=== PATIENT | male | born 1960 | race Caucasian/White ===

== ENCOUNTER 2020-07-02 06:35 | Outpatient (CLI) | payer MEDICARE, OTHER ==
[~2020-07-02] VITALS: Ht 170.2 cm; Wt 108.0 kg
[2020-07-02] VITALS (11 sets, daily range): BP systolic 131–170; BP diastolic 67–86
[2020-07-02] MEDS ORDERED: LIDOCAINE WITH 8.4% SOD BICARB 3 ML DISP.SYRIN. ONE (08:03)
[2020-07-02] MEDS ORDERED: HYDR-2761 PO (08:12)
[2020-07-02] MEDS ORDERED: GABA300C18 PO (08:12)
[2020-07-02] MEDS ORDERED: LEVO75TA5 PO (08:12)
[2020-07-02] MEDS ORDERED: CHLO15MO2 PO (08:12)
[2020-07-02 08:32] LABS: BASO % 1 % (0-3); EOS # 0.3 x10^3/uL (0.0-0.7); EOS % 4 % (0-3); HEMATOCRIT 43.1 % (39.0-53.0); HEMOGLOBIN 14.6 g/dL (13.0-17.5); LYMPH # 1.2 x10^3/uL (1.0-4.8); LYMPH % 17 % (24-48); MEAN CORPUSCULAR HEMOGLOBIN 30 pg (25-35); MEAN CORPUSCULAR HGB CONC 34 g/dL (31-37); MEAN CORPUSCULAR VOLUME 89 fL (79-100); MONO # 0.4 x10^3/uL (0.0-1.1); MONO % 6 % (0-9); NEUT % 72 % (31-73); PLATELET COUNT 230 x10^3/uL (140-400); RED BLOOD COUNT 4.83 x10^6/uL (4.30-5.70); RED CELL DISTRIBUTION WIDTH 15.5 % (11.5-14.5); WHITE BLOOD COUNT 6.8 x10^3/uL (4.0-11.0)
[2020-07-02 08:46] LABS: CALCIUM 8.8 mg/dL (8.5-10.1); CREATININE 1.3 mg/dL (0.7-1.3); GFR 55.9; POTASSIUM 4.1 mmol/L (3.5-5.1); PROTHROMBIN TIME PATIENT 13.3 SEC (11.7-14.0)
[2020-07-02] MEDS ORDERED: MIDAZOLAM HCL/PF 2 MG/2 ML VIAL. ONE (09:02)
[2020-07-02] MEDS ORDERED: fentaNYL PF VIAL 100 MCG/2 ML VIAL ONE (09:02)
[2020-07-02] MEDS ORDERED: FLUMAZENIL 0.5 MG/5 ML VIAL. IV ONE (09:02)
[2020-07-02] MEDS ORDERED: fentaNYL PF VIAL 100 MCG/2 ML VIAL IV ONE (09:15)
[2020-07-02] MEDS ORDERED: MIDAZOLAM HCL/PF 2 MG/2 ML VIAL. IV ONE (09:15)
[2020-07-02] MEDS ORDERED: LIDOCAINE WITH 8.4% SOD BICARB 3 ML DISP.SYRIN. IJ ONE (09:15)
--- NOTE | 2020-07-02 09:52 | PDOC ---
MODERATE SEDATION ASSESSMENT RISKS/ALTERNATIVES Risks/Alternatives Risks and alternatives of this type of sedation and procedure discussed with: RISK/ALTERNATIVES: Patient H & P ON CHART H & P H & P on chart and reviewed for co-morbid conditions and appropriate labs. H&P ON CHART: Yes STATUS PREG STATUS ASSESSED: Yes MEDS/ALLERGIES REVIEWED Meds/Allergies Reviewed Medications and Allergies including time and route of recently administered narcotics and sedatives. MEDS/ALLERGIES REVIEWED: Yes ASA RATING ASA RATING: II AIRWAY ASSESSMENT Airway Assessment Airway patency, oral function limitations, presence of caps, crowns, dentures, partials, and ability to extend neck assessed. AIRWAY ASSESSMENT: Yes MALLAMPATI SCORE MALLAMPATI SCORE: II PRE-SEDATION ASSESSMENT PRE-SEDATION ASSESSMENT: Yes RAZ MOON MD July 02, 2020 09:52
--- NOTE | 2020-07-02 09:53 | PDOC ---
BRIEF OPERATIVE NOTE Pre-Op Diagnosis SCC with left rib mass Post-Op Diagnosis same Procedure Performed CT left 5th rib biopsy Surgeon Jose EBL minimal Anesthesia Type: Conscious Sedation Specimens Obtained 6 x 18g cores Findings left 5th rib biopsy Complications no immediate RAZ MOON MD July 02, 2020 09:53
--- NOTE | 2020-07-02 10:59 | NUR ---
Discharge Note: VENESSA MCCORMACK Discharge instructions and discharge home medications reviewed with Patient and a copy given. All questions have been answered and understanding verbalized. The following instructions and handouts were given: adult moderate sedation and biopsy aftercare Discontinued lines and drains: Peripheral IV intact. Patient discharged to Home or Self Care withFamily Membera Wheelchair
--- NOTE | 2020-07-02 15:09 | RAD ---
Procedure: CT-guided biopsy of a hematocrit anterior rib expansile destructive lesion suspicious for metastasis. Clinical Indication: Adult male with history of multifocal squamous cell carcinoma the lung status po st multiple segmentectomy's, now with recurrent lung and left anterior rib lesions. Sedation: Conscious sedation using a combination of Versed and fentanyl was provided for 14 minutes, including continuous monitoring of the patients heart rate, rhythm, blood pressure, oxygen saturation and level of arousability by a trained independent observer. CT Exposure: One or more of the following individualized dose reduction techniques were utilized for this examination: 1. Automated exposure control 2. Adjustment of the mA and/or kV according to alexey ent size 3. Use of iterative reconstruction technique Contrast: None Sterility: The procedure was performed in its entirety using appropriate elements of sterile techniqu e. Consent: The procedure was explained in its entirety to the patient or the patients designated repres entative by a member of the treatment team, including a discussion of the risks, benefits and commonl y accepted alternatives to the procedure, as well as the expected consequences of not performing the procedure. Discussion of the risks included, but was not limited to, those that are most frequent an d those that are rare but possibly severe or life-threatening, as well as the possibility of unforese en complications. Time Out: Immediately prior to initiation a procedural pause was conducted in the presence of the mem bers of the treatment team to verify correct patient identity, correct procedure, correct side if lance licable, correct patient position, availability of specialized equipment, review of patients allergie s, and assessment of current level of consciousness and arousability. Technique and Findings: Following informed consent, the patient was prepped and draped in usual steri le fashion. Pulmonary CT scan of the area of interest was performed. 1 percent lidocaine was used to achieve local anesthesia. A small dermatotomy was made. Under periodic CT surveillance, a 17-gauge ne edle guide was advanced towards the target lesion in multiple 18-gauge core biopsy specimens were obt ained and preserved in formalin. The needle guide was removed and hemostasis was achieved with manual compression. Complications: No immediate Impression: 1. CT-guided biopsy of a left anterior expansile fifth rib lesion suspicious for metastasis. Electronically signed by: Ren Garcia MD (07/02/2020 3:07 PM) [id number]
--- NOTE | 2020-07-04 02:12 | PATHOLOGY ---
[facility] Accession Number: [id number] . 01 Material submitted: . rib - LEFT RIB LESION. Modifiers: left . 01 Clinical history: . LEFT LUMP MASS CHEST WALL 5 AND 6 RIB LEFT 5,6 RIB LESION, CHEST WALL . 02 Diagnosis: "Left rib lesion BX", needle biopsy: - FIBROUS CONNECTIVE TISSUE WITH INVASIVE SQUAMOUS CELL CARCINOMA, MODERATELY DIFFERENTIATED, FOCALLY KERATINIZING. (SEE COMMENT) (CLW:yecenia; 07/03/2020) S 07/03/2020 1519 Local . 02 Comment: Clinical and radiographic correlation is required. The case is co-reviewed with Dr. Eldridge, who agrees, on 07/03/2020. The case will be discussed with Dr. Spencer and/or his office on 07/06/2020. (CLW:yecenia; 07/03/2020) . 02 Electronically signed: . Heide Yoon MD, Pathologist NPI- [id number] . 01 Gross description: . The specimen is received in formalin, labeled "Alex Mace, left rib lesion" received as multiple soft ogden tissue cores measuring up to 1.8 x less than 0.1cm entirely submitted in A1-A3.([facility]; 07/02/2020) BRE/BRE 07/03/2020 1517 Local . 02 Pathologist provided ICD-10: C49.6 . 02 CPT . 415977 Specimen Comment: A courtesy copy of this report has been sent to [phone], [phone] Specimen Comment: [id number] Specimen Comment: Report sent to DR MOON / DR SPENCER Specimen Comment: A duplicate report has been generated due to demographic updates. Performed at: [address] [facility] [address], [place], [place] [id number] MD Biju Sands MD Phone: [phone] Performed at: [address] [facility] [id number] MD Heide Yoon MD Phone: [phone]
== END 2020-07-02 11:20 | disposition home or self-care (01) ==
LOC: INTRAD 06:35
PROVIDERS: ATTEND Radiology Radiation Oncology
DX: R91.8 Other nonspecific abnormal finding of lung field (principal); C49.6 Malignant neoplasm of connective and soft tissue of trunk, unspecified; K21.9 Gastro-esophageal reflux disease without esophagitis; E03.9 Hypothyroidism, unspecified; Z20.822 Contact with and (suspected) exposure to COVID-19; Z79.899 Other long term (current) drug therapy; Z98.890 Other specified postprocedural states
CPT/HCPCS: 20220; 36415; 77012; 80048; 85025; 85610; 87426; 99152; J2250; J3010; J3490

== ENCOUNTER → 2020-07-08 | Outpatient (CLI) | payer MEDICARE, OTHER ==
[2020-07-02 10:55] VITALS: BP 143/78
[~2020-07-08] MED LIST: CHLO15MO2 PO; GABA300C18 PO; HYDR-2761 PO; LEVO75TA5 PO
[2020-07-08 15:26] LABS: BASO # 0.1 x10^3/uL (0.0-0.2); BASO % 1 % (0-3); EOS # 0.3 x10^3/uL (0.0-0.7); EOS % 3 % (0-3); HEMATOCRIT 45.9 % (39.0-53.0); HEMOGLOBIN 15.6 g/dL (13.0-17.5); LYMPH # 1.3 x10^3/uL (1.0-4.8); LYMPH % 14 % (24-48); MEAN CORPUSCULAR HEMOGLOBIN 30 pg (25-35); MEAN CORPUSCULAR HGB CONC 34 g/dL (31-37); MEAN CORPUSCULAR VOLUME 88 fL (79-100); MONO # 0.5 x10^3/uL (0.0-1.1); MONO % 5 % (0-9); NEUT # 7.2 x10^3/uL (1.8-7.7); NEUT % 77 % (31-73); PLATELET COUNT 251 x10^3/uL (140-400); RED BLOOD COUNT 5.23 x10^6/uL (4.30-5.70); RED CELL DISTRIBUTION WIDTH 15.7 % (11.5-14.5); WHITE BLOOD COUNT 9.3 x10^3/uL (4.0-11.0)
[2020-07-08 15:48] LABS: CALCIUM 9.1 mg/dL (8.5-10.1); CREATININE 1.5 mg/dL (0.7-1.3); GFR 47.4; POTASSIUM 4.1 mmol/L (3.5-5.1)
[2020-07-08 15:53] LABS: ALBUMIN 3.9 g/dL (3.4-5.0); ALBUMIN/GLOBULIN RATIO 0.8 (1.0-1.7); TOTAL BILIRUBIN 0.7 mg/dL (0.2-1.0); TOTAL PROTEIN 8.6 g/dL (6.4-8.2)
== END ==
LOC: ONCLAB 14:41
PROVIDERS: ATTEND Internal Medicine Hematology & Oncology
DX: C34.12 Malignant neoplasm of upper lobe, left bronchus or lung (principal)
CPT/HCPCS: 36415; 80053; 85025

== ENCOUNTER → 2020-07-13 | Outpatient (CLI) | payer MEDICARE, MEDICAID ==
[2020-07-02 10:55] VITALS: BP 143/78
[~2020-07-13] MED LIST changes: +GADOTERATE 7.5 MMOL/15ML VIAL. IVP ONE
--- NOTE | 2020-07-13 14:28 | KCIC ---
EXAM: Brain MRI with and without contrast. HISTORY: Small cell lung cancer. TECHNIQUE: Multiplanar, multisequence magnetic resonance imaging of the brain was performed prior to and following the administration of intravenous contrast. COMPARISON: None. FINDINGS: There is no restricted diffusion to suggest acute or subacute infarction. There is no mass effect or midline shift. There is no hydrocephalus. There is mild cerebral volume loss. There are few foci of signal change the cerebral white matter, likely due to chronic small vessel disease. There i s no suspicious enhancing lesion. The orbits are unremarkable. There are maxillary sinus mucous retention cysts and there is a tiny rig ht maxillary sinus air-fluid level. There is mild mucosal thickening involving the ethmoid, frontal a nd sphenoid sinuses. The mastoid air cells are clear. There is a suspected hypoplastic distal right v ertebral artery. There are normal flow voids within the cerebral vessels. There is no suspicious osse ous lesion. IMPRESSION: 1. No acute intracranial finding or evidence of intracranial mass effect disease. 2. Mild age-appropriate cerebral volume loss and tiny foci of signal change within the cerebral white matter, likely due to chronic small vessel disease. Electronically signed by: Connie Scott MD (07/13/2020 2:26 PM) [id number]
== END ==
LOC: KCIC MRI 12:31
PROVIDERS: ATTEND Internal Medicine Hematology & Oncology
DX: C34.12 Malignant neoplasm of upper lobe, left bronchus or lung (principal); R91.8 Other nonspecific abnormal finding of lung field; C88.4 Extranodal marginal zone B-cell lymphoma of mucosa-associated lymphoid tissue [MALT-lymphoma]; K11.6 Mucocele of salivary gland
CPT/HCPCS: 70553; A9575

== ENCOUNTER → 2020-07-15 | Outpatient (CLI) | payer MEDICARE, MEDICAID ==
[2020-07-02 10:55] VITALS: BP 143/78
[~2020-07-15] MED LIST changes: -GADOTERATE 7.5 MMOL/15ML VIAL. IVP ONE
[2020-07-15 10:32] LABS: BASO # 0.1 x10^3/uL (0.0-0.2); BASO % 1 % (0-3); EOS # 0.2 x10^3/uL (0.0-0.7); EOS % 2 % (0-3); HEMATOCRIT 44.9 % (39.0-53.0); HEMOGLOBIN 15.3 g/dL (13.0-17.5); LYMPH # 0.8 x10^3/uL (1.0-4.8); LYMPH % 12 % (24-48); MEAN CORPUSCULAR HEMOGLOBIN 30 pg (25-35); MEAN CORPUSCULAR HGB CONC 34 g/dL (31-37); MEAN CORPUSCULAR VOLUME 87 fL (79-100); MONO # 0.5 x10^3/uL (0.0-1.1); MONO % 7 % (0-9); NEUT # 5.6 x10^3/uL (1.8-7.7); NEUT % 78 % (31-73); PLATELET COUNT 223 x10^3/uL (140-400); RED BLOOD COUNT 5.17 x10^6/uL (4.30-5.70); RED CELL DISTRIBUTION WIDTH 15.4 % (11.5-14.5); WHITE BLOOD COUNT 7.2 x10^3/uL (4.0-11.0)
[2020-07-15 12:41] LABS: ALBUMIN 3.6 g/dL (3.4-5.0); ALBUMIN/GLOBULIN RATIO 0.7 (1.0-1.7); CALCIUM 9.3 mg/dL (8.5-10.1); CREATININE 1.3 mg/dL (0.7-1.3); GFR 55.9; POTASSIUM 3.8 mmol/L (3.5-5.1); TOTAL BILIRUBIN 0.9 mg/dL (0.2-1.0); TOTAL PROTEIN 8.5 g/dL (6.4-8.2)
== END ==
LOC: ONCLAB 10:00
PROVIDERS: ATTEND Internal Medicine Hematology & Oncology
DX: C34.12 Malignant neoplasm of upper lobe, left bronchus or lung (principal); C79.51 Secondary malignant neoplasm of bone; C88.4 Extranodal marginal zone B-cell lymphoma of mucosa-associated lymphoid tissue [MALT-lymphoma]; R91.8 Other nonspecific abnormal finding of lung field; D48.7 Neoplasm of uncertain behavior of other specified sites
CPT/HCPCS: 36415; 80053; 82378; 85025

== ENCOUNTER → 2020-07-22 | Outpatient (CLI) | payer MEDICARE, MEDICAID ==
[2020-07-02 10:55] VITALS: BP 143/78
[2020-07-22 11:25] LABS: BASO % 0 % (0-3); EOS # 0.4 x10^3/uL (0.0-0.7); EOS % 5 % (0-3); HEMATOCRIT 42.5 % (39.0-53.0); HEMOGLOBIN 14.6 g/dL (13.0-17.5); LYMPH # 0.6 x10^3/uL (1.0-4.8); LYMPH % 7 % (24-48); MEAN CORPUSCULAR HEMOGLOBIN 30 pg (25-35); MEAN CORPUSCULAR HGB CONC 34 g/dL (31-37); MEAN CORPUSCULAR VOLUME 86 fL (79-100); MONO # 0.7 x10^3/uL (0.0-1.1); MONO % 8 % (0-9); NEUT # 6.8 x10^3/uL (1.8-7.7); NEUT % 80 % (31-73); PLATELET COUNT 284 x10^3/uL (140-400); RED BLOOD COUNT 4.93 x10^6/uL (4.30-5.70); RED CELL DISTRIBUTION WIDTH 15.2 % (11.5-14.5); WHITE BLOOD COUNT 8.5 x10^3/uL (4.0-11.0)
[2020-07-22 11:37] LABS: CALCIUM 9.8 mg/dL (8.5-10.1); CREATININE 1.3 mg/dL (0.7-1.3); GFR 55.9; POTASSIUM 3.8 mmol/L (3.5-5.1)
[2020-07-22 11:41] LABS: ALBUMIN 3.1 g/dL (3.4-5.0); ALBUMIN/GLOBULIN RATIO 0.6 (1.0-1.7); TOTAL BILIRUBIN 0.8 mg/dL (0.2-1.0); TOTAL PROTEIN 8.4 g/dL (6.4-8.2)
== END ==
LOC: LAB 11:00
PROVIDERS: ATTEND Internal Medicine Hematology & Oncology
DX: C34.12 Malignant neoplasm of upper lobe, left bronchus or lung (principal)
CPT/HCPCS: 36415; 80053; 82378; 85025

== ENCOUNTER 2020-07-27 08:10 | Outpatient (CLI) | payer MEDICARE, MEDICAID ==
[2020-07-27] VITALS (7 sets, daily range): BP systolic 121–150; BP diastolic 77–84
[~2020-07-27] VITALS: Ht 170.2 cm; Wt 102.7 kg
[2020-07-27] MEDS ORDERED: LIDOCAINE 1%/EPI 1:100,000 20 ML VIAL. ONE (08:54)
[2020-07-27 09:06] LABS: PROTHROMBIN TIME PATIENT 13.5 SEC (11.7-14.0)
[2020-07-27] MEDS ORDERED: ONDA4TAB7 PO (09:19)
[2020-07-27] MEDS ORDERED: MIDAZOLAM HCL/PF 5 MG/5 ML VIAL. ONE (09:40)
[2020-07-27] MEDS ORDERED: fentaNYL PF VIAL 100 MCG/2 ML VIAL ONE (09:41)
[2020-07-27] MEDS ORDERED: ONDANSETRON PF 4 MG/2 ML VIAL. ONE (09:52)
[2020-07-27] MEDS ORDERED: ONDANSETRON PF 4 MG/2 ML VIAL. IVP ONE (10:15)
[2020-07-27] MEDS ORDERED: LIDOCAINE 1%/EPI 1:100,000 20 ML VIAL. INJ ONE (10:15)
[2020-07-27] MEDS ORDERED: MIDAZOLAM HCL/PF 5 MG/5 ML VIAL. IV ONE (10:15)
[2020-07-27] MEDS ORDERED: fentaNYL PF VIAL 100 MCG/2 ML VIAL IV ONE (10:15)
--- NOTE | 2020-07-27 10:52 | RAD ---
PROCEDURE: Fluoroscopically and ultrasound-guided placement of right internal jugular tunnel central venous catheter with port (Bard PowerPort, Groshong tip ). Clinical Indication: Chemotherapy Access Discussion: The risks and benefits of the procedure were discussed with the patient and/or their sales representative printing. Informed consent was obtained. The patient was brought to the fluoroscopy suite and placed in supine position. A time out procedure was performed. The right neck and chest were prepped and draped using maximum sterile barrier technique including th e use of: Current guideline approved cutaneous antisepsis, a large sterile sheet to establish a steri le field. Additionally the shuttle buggy operator wore a hat, mask, sterile gloves, a sterile gown during the proce dure as well as practiced acceptable hand hygiene prior to placing the port. Ultrasound-guided access: Ultrasound evaluation showed the right jugular vein to be patent and compr essible. 1 % lidocaine with epinephrine was administered to the skin and subcutaneous tissues overlyi ng the right neck and chest. Under direct ultrasound guidance a single wall puncture was made followe d by tract dilation and placement of a sheath. An ultrasound image was saved and sent to PACS. Next, an incision was made in an infraclavicular location and a pocket created. The catheter was tunneled between the pocket and the venotomy site. The catheter was advanced through the peel away sheath, u nder fluoroscopic guidance, such that it's tip was in the mid right atrium. The catheter was connecte d to the port reservoir. The port was accessed and found to flush and aspirate normally. The reservoi r was then placed into the subcutaneous pocket. The wound was closed in layers using 3 Vicryl and 4- 0 Vicryl suture. Dermabond was applied overlying the wound, and venotomy site. The patient tolerated procedure without immediate complication. Sedation: Conscious sedation was performed for 35 minutes. Sedation was carried out while the patie nt was continually monitored by a member of the Radiology nursing staff. Continual cardiopulmonary m onitoring was carried out during the procedure. The patient tolerated the procedure well and there w ere no immediate complications. fluoro time: 0.4 min dose area product 2 Gycm2 Impression: Successful ultrasound and fluoroscopically guided placement of right internal jugular michelle chevy central venous catheter with port Electronically signed by: Abhijit Rockwell MD (07/27/2020 10:50 AM) [id number]
--- NOTE | 2020-07-27 10:53 | RAD ---
PROCEDURE: Fluoroscopically and ultrasound-guided placement of right internal jugular tunnel central venous catheter with port (Bard PowerPort, Groshong tip ). Clinical Indication: Chemotherapy Access Discussion: The risks and benefits of the procedure were discussed with the patient and/or their phlebotomy services representative. Informed consent was obtained. The patient was brought to the fluoroscopy suite and placed in supine position. A time out procedure was performed. The right neck and chest were prepped and draped using maximum sterile barrier technique including th e use of: Current guideline approved cutaneous antisepsis, a large sterile sheet to establish a steri le field. Additionally the cylinder sander operator wore a hat, mask, sterile gloves, a sterile gown during the proce dure as well as practiced acceptable hand hygiene prior to placing the port. Ultrasound-guided access: Ultrasound evaluation showed the right jugular vein to be patent and compr essible. 1 % lidocaine with epinephrine was administered to the skin and subcutaneous tissues overlyi ng the right neck and chest. Under direct ultrasound guidance a single wall puncture was made followe d by tract dilation and placement of a sheath. An ultrasound image was saved and sent to PACS. Next, an incision was made in an infraclavicular location and a pocket created. The catheter was tunneled between the pocket and the venotomy site. The catheter was advanced through the peel away sheath, u nder fluoroscopic guidance, such that it's tip was in the mid right atrium. The catheter was connecte d to the port reservoir. The port was accessed and found to flush and aspirate normally. The reservoi r was then placed into the subcutaneous pocket. The wound was closed in layers using 3 Vicryl and 4- 0 Vicryl suture. Dermabond was applied overlying the wound, and venotomy site. The patient tolerated procedure without immediate complication. Sedation: Conscious sedation was performed for 35 minutes. Sedation was carried out while the patie nt was continually monitored by a member of the Radiology nursing staff. Continual cardiopulmonary m onitoring was carried out during the procedure. The patient tolerated the procedure well and there w ere no immediate complications. fluoro time: 0.4 min dose area product 2 Gycm2 Impression: Successful ultrasound and fluoroscopically guided placement of right internal jugular michelle chevy central venous catheter with port Electronically signed by: Abhijit Rockwell MD (07/27/2020 10:50 AM) [id number]
--- NOTE | 2020-07-27 11:50 | NUR ---
Discharge Note: VENESSA MCCORMACK Discharge instructions and discharge home medications reviewed with Reo Asset Manager and a copy given. All questions have been answered and understanding verbalized. The following instructions and handouts were given: candice cath instructions and adult moderate sedation Discontinued lines and drains: Peripheral IV intact. Patient discharged to Home or Self Care withFamily Membervia Wheelchair. Patient taken to Radiation/oncology on ground floor for mapping.
--- NOTE | 2020-07-30 09:00 | RAD ---
Procedure: Ultrasound and fluoroscopically guided placement of right internal jugular power port.. 07/30/2020 6:39 AM Clinical Indication: Cancer Treatment Sedation: Conscious sedation was administered for 30 minutes. The patient was monitored by a qualified independent observer throughout the time of sedation. Please refer to the medical record for exact doses of medications utilized to achieve moderate sedation. Fluoroscopy time: 1 minutes Dose area product: 2 Gycm2 Consent: The procedure was explained in its entirety to the patient or the patients designated tax compliance representative by a member of the treatment team, including a discussion of the risks, benefits and commonly accepted alternatives to the procedure, as well as the expected consequences of no therapy whatsoever. Discussion of the risks included, but was not limited to, those that are most frequent and those that are rare but possibly severe or life-threatening, as well as the possibility of unforeseen complications. Technique and Findings: All elements of maximal sterile barrier technique including the use of a cap, mask, sterile gown, sterile gloves, large sterile sheet, appropriate hand hygiene, and 2% chlorhexidine for cutaneous antisepsis (or acceptable alternative antiseptic per current guidelines) were followed for this procedure. Following informed consent, and a timeout procedure, the patient was prepped and draped in the usual sterile fashion. Ultrasound interrogation of the right neck revealed patency and compressibility of the right internal jugular vein. A 21-gauge micropuncture was then used to gain access to this vein under ultrasound guidance. A hard copy ultrasound image was recorded. The needle was exchanged over a wire for a sheath. A 1 inch incision was made several centimeters inferior to the venotomy site. A catheter was tunneled from this site dermatotomy site in the neck. Catheter was advanced through peel-away sheath such that its tip was in the proximal right atrium with the patient supine. The catheter was trimmed to length and connected to the port reservoir. The port was found to flush and aspirate normally. The wound was closed in layers using 4-0 Vicryl suture. Sterile dressings were applied. Impression: Successful ultrasound and fluoroscopically guided placement of a right internal jugular PowerPort
== END 2020-07-27 11:50 | disposition home or self-care (01) ==
LOC: INTRAD 08:10
PROVIDERS: ATTEND Internal Medicine Hematology & Oncology
DX: Z45.2 Encounter for adjustment and management of vascular access device (principal); K21.9 Gastro-esophageal reflux disease without esophagitis; E03.9 Hypothyroidism, unspecified; Z79.899 Other long term (current) drug therapy; Z98.890 Other specified postprocedural states
CPT/HCPCS: 36415; 36561; 76937; 77001; 85610; 87426; 99152; 99153; C1788; C1892; J0690; J2250; J2405; J3010; J3490

== ENCOUNTER → 2020-07-29 | Outpatient (CLI) | payer MEDICARE, MEDICAID ==
[2020-07-27 11:35] VITALS: BP 130/82
[~2020-07-29] MED LIST changes: +ONDA4TAB7 PO
[2020-07-29 14:32] LABS: BASO % 0 % (0-3); EOS # 0.2 x10^3/uL (0.0-0.7); EOS % 3 % (0-3); HEMATOCRIT 41.1 % (39.0-53.0); HEMOGLOBIN 14.1 g/dL (13.0-17.5); LYMPH # 0.3 x10^3/uL (1.0-4.8); LYMPH % 5 % (24-48); MEAN CORPUSCULAR HEMOGLOBIN 30 pg (25-35); MEAN CORPUSCULAR HGB CONC 34 g/dL (31-37); MEAN CORPUSCULAR VOLUME 87 fL (79-100); MONO # 0.2 x10^3/uL (0.0-1.1); MONO % 3 % (0-9); NEUT # 6.5 x10^3/uL (1.8-7.7); NEUT % 89 % (31-73); PLATELET COUNT 237 x10^3/uL (140-400); RED BLOOD COUNT 4.76 x10^6/uL (4.30-5.70); RED CELL DISTRIBUTION WIDTH 14.8 % (11.5-14.5); WHITE BLOOD COUNT 7.3 x10^3/uL (4.0-11.0)
[2020-07-29 14:45] LABS: CALCIUM 9.1 mg/dL (8.5-10.1); CREATININE 1.5 mg/dL (0.7-1.3); GFR 47.4; POTASSIUM 3.5 mmol/L (3.5-5.1)
[2020-07-29 14:51] LABS: ALBUMIN 3.1 g/dL (3.4-5.0); ALBUMIN/GLOBULIN RATIO 0.6 (1.0-1.7); TOTAL BILIRUBIN 0.9 mg/dL (0.2-1.0); TOTAL PROTEIN 8.1 g/dL (6.4-8.2)
[2020-07-29 15:42] LABS: % EOS 5 % (0-5); % LYMPHS 3 % (24-48); % MONOS 1 % (0-10); % SEGS 91 % (35-66); PLT ESTIMATE ADEQUATE (ADEQUATE)
== END ==
LOC: ONCLAB 14:15
PROVIDERS: ATTEND Physician Assistant
DX: C34.12 Malignant neoplasm of upper lobe, left bronchus or lung (principal)
CPT/HCPCS: 36415; 80053; 82378; 85007; 85025

== ENCOUNTER → 2020-08-04 | Outpatient (CLI) | payer MEDICARE, MEDICAID ==
[2020-07-27 11:35] VITALS: BP 130/82
[2020-08-04 16:08] LABS: BASO % 1 % (0-3); EOS % 2 % (0-3); HEMOGLOBIN 13.3 g/dL (13.0-17.5); LYMPH # 0.2 x10^3/uL (1.0-4.8); LYMPH % 19 % (24-48); MEAN CORPUSCULAR HEMOGLOBIN 30 pg (25-35); MEAN CORPUSCULAR HGB CONC 35 g/dL (31-37); MEAN CORPUSCULAR VOLUME 86 fL (79-100); MONO # 0.1 x10^3/uL (0.0-1.1); MONO % 4 % (0-9); NEUT % 74 % (31-73); PLATELET COUNT 154 x10^3/uL (140-400); RED BLOOD COUNT 4.43 x10^6/uL (4.30-5.70); RED CELL DISTRIBUTION WIDTH 14.7 % (11.5-14.5)
[2020-08-04 16:13] LABS: WHITE BLOOD COUNT 1.3 x10^3/uL (4.0-11.0)
[2020-08-04 16:17] LABS: ALBUMIN 2.8 g/dL (3.4-5.0); ALBUMIN/GLOBULIN RATIO 0.7 (1.0-1.7); CALCIUM 8.9 mg/dL (8.5-10.1); CREATININE 1.3 mg/dL (0.7-1.3); GFR 55.9; POTASSIUM 3.1 mmol/L (3.5-5.1); TOTAL BILIRUBIN 1.1 mg/dL (0.2-1.0); TOTAL PROTEIN 7.1 g/dL (6.4-8.2)
[2020-08-04 17:12] LABS: % BANDS 6 % (0-9); % EOS 2 % (0-5); % LYMPHS 24 % (24-48); % MONOS 3 % (0-10); % SEGS 65 % (35-66)
[2020-08-04 17:13] LABS: PLT ESTIMATE ADEQUATE (ADEQUATE)
== END ==
LOC: ONCLAB 15:30
PROVIDERS: ATTEND Physician Assistant
DX: C34.12 Malignant neoplasm of upper lobe, left bronchus or lung (principal)
CPT/HCPCS: 36415; 80053; 85007; 85025

== ENCOUNTER → 2020-08-07 | Outpatient (CLI) | payer MEDICARE, MEDICAID ==
[2020-07-27 11:35] VITALS: BP 130/82
[2020-08-07 12:19] LABS: BASO % 0 % (0-3); EOS % 1 % (0-3); HEMOGLOBIN 12.4 g/dL (13.0-17.5); LYMPH # 0.3 x10^3/uL (1.0-4.8); LYMPH % 6 % (24-48); MEAN CORPUSCULAR HEMOGLOBIN 29 pg (25-35); MEAN CORPUSCULAR HGB CONC 35 g/dL (31-37); MEAN CORPUSCULAR VOLUME 85 fL (79-100); MONO # 0.5 x10^3/uL (0.0-1.1); MONO % 11 % (0-9); NEUT % 82 % (31-73); PLATELET COUNT 164 x10^3/uL (140-400); RED BLOOD COUNT 4.22 x10^6/uL (4.30-5.70); RED CELL DISTRIBUTION WIDTH 14.6 % (11.5-14.5); WHITE BLOOD COUNT 4.9 x10^3/uL (4.0-11.0)
[2020-08-07 12:35] LABS: CALCIUM 8.4 mg/dL (8.5-10.1); GFR 75.7
== END ==
LOC: ONCLAB 11:41
PROVIDERS: ATTEND Physician Assistant
DX: D48.7 Neoplasm of uncertain behavior of other specified sites (principal)
CPT/HCPCS: 36415; 80048; 85025

== ENCOUNTER → 2020-08-12 | Outpatient (CLI) | payer MEDICARE, MEDICAID ==
[2020-07-27 11:35] VITALS: BP 130/82
[2020-08-12 09:22] LABS: BASO % 0 % (0-3); EOS # 0.1 x10^3/uL (0.0-0.7); EOS % 2 % (0-3); HEMATOCRIT 36.7 % (39.0-53.0); HEMOGLOBIN 12.4 g/dL (13.0-17.5); LYMPH # 0.5 x10^3/uL (1.0-4.8); LYMPH % 10 % (24-48); MEAN CORPUSCULAR HEMOGLOBIN 29 pg (25-35); MEAN CORPUSCULAR HGB CONC 34 g/dL (31-37); MEAN CORPUSCULAR VOLUME 87 fL (79-100); MONO # 0.3 x10^3/uL (0.0-1.1); MONO % 7 % (0-9); NEUT # 3.7 x10^3/uL (1.8-7.7); NEUT % 80 % (31-73); PLATELET COUNT 173 x10^3/uL (140-400); RED BLOOD COUNT 4.24 x10^6/uL (4.30-5.70); WHITE BLOOD COUNT 4.6 x10^3/uL (4.0-11.0)
[2020-08-12 09:36] LABS: ALBUMIN 2.8 g/dL (3.4-5.0); ALBUMIN/GLOBULIN RATIO 0.7 (1.0-1.7); CALCIUM 8.7 mg/dL (8.5-10.1); GFR 75.7; TOTAL BILIRUBIN 0.6 mg/dL (0.2-1.0); TOTAL PROTEIN 7.1 g/dL (6.4-8.2)
[2020-08-12 09:38] LABS: POTASSIUM 2.9 mmol/L (3.5-5.1)
== END ==
LOC: ONCLAB 08:37
PROVIDERS: ATTEND Internal Medicine Hematology & Oncology
DX: C34.12 Malignant neoplasm of upper lobe, left bronchus or lung (principal)
CPT/HCPCS: 36415; 80053; 85025

== ENCOUNTER → 2020-08-19 | Outpatient (CLI) | payer MEDICARE, MEDICAID ==
[2020-07-27 11:35] VITALS: BP 130/82
[2020-08-19 08:45] LABS: BASO # 0.1 x10^3/uL (0.0-0.2); BASO % 3 % (0-3); EOS # 0.1 x10^3/uL (0.0-0.7); EOS % 2 % (0-3); HEMOGLOBIN 12.4 g/dL (13.0-17.5); LYMPH # 0.5 x10^3/uL (1.0-4.8); LYMPH % 18 % (24-48); MEAN CORPUSCULAR HEMOGLOBIN 29 pg (25-35); MEAN CORPUSCULAR HGB CONC 33 g/dL (31-37); MEAN CORPUSCULAR VOLUME 87 fL (79-100); MONO # 0.1 x10^3/uL (0.0-1.1); MONO % 2 % (0-9); NEUT # 2.2 x10^3/uL (1.8-7.7); NEUT % 76 % (31-73); PLATELET COUNT 258 x10^3/uL (140-400); RED BLOOD COUNT 4.28 x10^6/uL (4.30-5.70); RED CELL DISTRIBUTION WIDTH 15.4 % (11.5-14.5); WHITE BLOOD COUNT 2.9 x10^3/uL (4.0-11.0)
[2020-08-19 09:04] LABS: CALCIUM 9.4 mg/dL (8.5-10.1); CREATININE 0.9 mg/dL (0.7-1.3); GFR 85.5
[2020-08-19 09:10] LABS: ALBUMIN 3.4 g/dL (3.4-5.0); ALBUMIN/GLOBULIN RATIO 0.9 (1.0-1.7); TOTAL BILIRUBIN 0.5 mg/dL (0.2-1.0); TOTAL PROTEIN 7.4 g/dL (6.4-8.2)
== END ==
LOC: ONCLAB 08:25
PROVIDERS: ATTEND Physician Assistant
DX: C34.12 Malignant neoplasm of upper lobe, left bronchus or lung (principal)
CPT/HCPCS: 36415; 80053; 85025

== ENCOUNTER → 2020-08-26 | Outpatient (CLI) | payer MEDICARE, MEDICAID ==
[2020-07-27 11:35] VITALS: BP 130/82
[2020-08-26 08:25] LABS: BASO % 1 % (0-3); EOS % 1 % (0-3); HEMOGLOBIN 11.9 g/dL (13.0-17.5); LYMPH # 0.4 x10^3/uL (1.0-4.8); LYMPH % 29 % (24-48); MEAN CORPUSCULAR HEMOGLOBIN 30 pg (25-35); MEAN CORPUSCULAR HGB CONC 34 g/dL (31-37); MEAN CORPUSCULAR VOLUME 87 fL (79-100); MONO # 0.1 x10^3/uL (0.0-1.1); MONO % 9 % (0-9); NEUT # 0.8 x10^3/uL (1.8-7.7); NEUT % 60 % (31-73); PLATELET COUNT 164 x10^3/uL (140-400); RED BLOOD COUNT 4.02 x10^6/uL (4.30-5.70); RED CELL DISTRIBUTION WIDTH 15.5 % (11.5-14.5)
[2020-08-26 08:33] LABS: CALCIUM 9.6 mg/dL (8.5-10.1); GFR 75.7; POTASSIUM 4.3 mmol/L (3.5-5.1)
[2020-08-26 08:37] LABS: WHITE BLOOD COUNT 1.4 x10^3/uL (4.0-11.0)
[2020-08-26 08:38] LABS: ALBUMIN 3.8 g/dL (3.4-5.0); TOTAL BILIRUBIN 0.9 mg/dL (0.2-1.0); TOTAL PROTEIN 7.6 g/dL (6.4-8.2)
[2020-08-26 10:08] LABS: % BANDS 1 % (0-9); % BASOS 2 % (0-3); % LYMPHS 32 % (24-48); % MONOS 6 % (0-10); % SEGS 59 % (35-66); PLT ESTIMATE ADEQUATE (ADEQUATE)
== END ==
LOC: ONCLAB 08:03
PROVIDERS: ATTEND Internal Medicine Hematology & Oncology
DX: C34.12 Malignant neoplasm of upper lobe, left bronchus or lung (principal)
CPT/HCPCS: 36415; 80053; 85007; 85025

== ENCOUNTER → 2020-08-28 | Outpatient (CLI) | payer MEDICARE, MEDICAID ==
[2020-07-27 11:35] VITALS: BP 130/82
[2020-08-28 10:42] LABS: AMYLASE 34 U/L (25-115); LIPASE 90 U/L (73-393)
== END ==
LOC: ONCLAB 09:55
PROVIDERS: ATTEND Physician Assistant
DX: R11.0 Nausea (principal)
CPT/HCPCS: 36415; 82150; 83690

== ENCOUNTER → 2020-09-02 | Outpatient (CLI) | payer MEDICARE, MEDICAID ==
[2020-07-27 11:35] VITALS: BP 130/82
[2020-09-02 09:04] LABS: BASO % 1 % (0-3); EOS % 0 % (0-3); HEMATOCRIT 34.1 % (39.0-53.0); HEMOGLOBIN 11.3 g/dL (13.0-17.5); LYMPH # 0.5 x10^3/uL (1.0-4.8); LYMPH % 12 % (24-48); MEAN CORPUSCULAR HEMOGLOBIN 30 pg (25-35); MEAN CORPUSCULAR HGB CONC 33 g/dL (31-37); MEAN CORPUSCULAR VOLUME 90 fL (79-100); MONO # 0.5 x10^3/uL (0.0-1.1); MONO % 12 % (0-9); NEUT # 3.3 x10^3/uL (1.8-7.7); NEUT % 75 % (31-73); PLATELET COUNT 136 x10^3/uL (140-400); RED BLOOD COUNT 3.78 x10^6/uL (4.30-5.70); RED CELL DISTRIBUTION WIDTH 19.6 % (11.5-14.5); WHITE BLOOD COUNT 4.3 x10^3/uL (4.0-11.0)
[2020-09-02 09:21] LABS: CREATININE 0.9 mg/dL (0.7-1.3); GFR 85.5; POTASSIUM 3.2 mmol/L (3.5-5.1)
[2020-09-02 09:26] LABS: ALBUMIN 3.2 g/dL (3.4-5.0); ALBUMIN/GLOBULIN RATIO 0.8 (1.0-1.7); TOTAL BILIRUBIN 1.4 mg/dL (0.2-1.0); TOTAL PROTEIN 7.3 g/dL (6.4-8.2)
== END ==
LOC: ONCLAB 08:14
PROVIDERS: ATTEND Physician Assistant
DX: C34.12 Malignant neoplasm of upper lobe, left bronchus or lung (principal)
CPT/HCPCS: 36415; 80053; 85025

== ENCOUNTER → 2020-10-08 | Outpatient (CLI) | payer MEDICARE, MEDICAID ==
[2020-07-27 11:35] VITALS: BP 130/82
[~2020-10-08] MED LIST changes: +HEPARIN PF 500 UNIT/5 ML DISP.SYRIN. IVP ONE; +IOHEXOL 240 MG/ML 50ML VIAL. PO ONE; +IOHEXOL 300 MG/ML 100ML VIAL. IV ONE
--- NOTE | 2020-10-08 12:56 | EKG ---
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
--- NOTE | 2020-10-09 08:51 | RAD ---
EXAM: CT CHEST, ABDOMEN, AND PELVIS WITHOUT CONTRAST INDICATION: Small cell lung cancer COMPARISON: CT chest from 05/22/2020 TECHNIQUE: Helical CT imaging performed of the chest, abdomen and pelvis without the use of intraveno us contrast. Sagittal and coronal reformats were obtained. One or more of the following individualized dose reduction techniques were utilized for this examinat ion: 1. Automated exposure control 2. Adjustment of the mA and/or kV according to patient size 3. Use of iterative reconstruction technique. FINDINGS: CHEST: Thyroid gland and thoracic inlet: Normal Heart and great vessels: Normal in caliber. No significant atherosclerosis or aneurysm seen. Mediastinum and nadege: No abnormal mediastinal or hilar adenopathy is seen. Lungs and pleura: There is a soft tissue density mass measuring 1.6 x 1.7 x 1.8 cm in maximum AP, crane operator cab nial caudal and transverse dimension (previously measuring 2.1 x 2.0 x 2.3 cm in corresponding dimens ions). The right lung is clear. There are streaky linear opacities in the left lung base likely atele ctasis. Chest wall and axillae: Normal Bones: Normal. ABDOMEN AND PELVIS: Liver: Normal without focal lesions Gallbladder/Biliary Tree: Not seen perhaps surgically absent. Pancreas: Normal Spleen: Stable grossly unremarkable Adrenal Glands: Normal, bilaterally symmetric. Normal in size a Kidneys/Ureters/Bladder: Normal bilateral kidneys with symmetric excretion of contrast. Stable renal cysts. Urinary bladder is decompressed Reproductive Organs: Normal Stomach, small bowel, and colon: Stomach is normal. Small bowel loops are grossly unremarkable. Sigmo id diverticulosis. There is anastomosis in the sigmoid colon. No adjacent mass lesions or stranding i s seen. Vasculature: Normal. Mild atheromatous calcification of the aorta is noted. Lymph Nodes: Normal Peritoneum and retroperitoneum: Normal Bones: Unremarkable IMPRESSION: 1. Interval decrease in the size of left lower lobe pulmonary mass. 2. No evidence of metastatic disease noted. Electronically signed by: Dora Polk MD (10/09/2020 8:49 AM) [id number]
== END ==
LOC: CT 11:16
PROVIDERS: ATTEND Physician Assistant
DX: C34.12 Malignant neoplasm of upper lobe, left bronchus or lung (principal); R91.8 Other nonspecific abnormal finding of lung field; K57.30 Diverticulosis of large intestine without perforation or abscess without bleeding; I70.0 Atherosclerosis of aorta; I44.4 Left anterior fascicular block; R94.31 Abnormal electrocardiogram [ECG] [EKG]
CPT/HCPCS: 71260; 74177; 93005; J1642; Q9966; Q9967

== ENCOUNTER → 2020-10-08 | Outpatient (CLI) | payer MEDICARE, MEDICAID ==
[2020-07-27 11:35] VITALS: BP 130/82
[~2020-10-08] MED LIST changes: -HEPARIN PF 500 UNIT/5 ML DISP.SYRIN. IVP ONE; -IOHEXOL 240 MG/ML 50ML VIAL. PO ONE; -IOHEXOL 300 MG/ML 100ML VIAL. IV ONE
[2020-10-08 10:28] LABS: BASO % 1 % (0-3); EOS % 1 % (0-3); HEMATOCRIT 25.7 % (39.0-53.0); HEMOGLOBIN 8.7 g/dL (13.0-17.5); LYMPH # 0.3 x10^3/uL (1.0-4.8); LYMPH % 11 % (24-48); MEAN CORPUSCULAR HEMOGLOBIN 33 pg (25-35); MEAN CORPUSCULAR HGB CONC 34 g/dL (31-37); MEAN CORPUSCULAR VOLUME 96 fL (79-100); MONO # 0.1 x10^3/uL (0.0-1.1); MONO % 5 % (0-9); NEUT # 2.1 x10^3/uL (1.8-7.7); NEUT % 83 % (31-73); PLATELET COUNT 158 x10^3/uL (140-400); RED BLOOD COUNT 2.68 x10^6/uL (4.30-5.70); RED CELL DISTRIBUTION WIDTH 23.6 % (11.5-14.5); WHITE BLOOD COUNT 2.6 x10^3/uL (4.0-11.0)
[2020-10-08 10:29] LABS: GFR 75.7; POTASSIUM 3.5 mmol/L (3.5-5.1)
[2020-10-08 10:42] LABS: FREE T4 1.24 ng/dL (0.76-1.46); THYROID STIM HORMONE (TSH) 1.811 uIU/mL (0.358-3.74)
[2020-10-08 12:36] LABS: % BASOS 1 % (0-3); % EOS 1 % (0-5); % LYMPHS 15 % (24-48); % SEGS 83 % (35-66)
[2020-10-08 12:39] LABS: PLT ESTIMATE ADEQUATE (ADEQUATE)
[2020-10-08 12:40] LABS: ANISOCYTOSIS MOD
== END ==
LOC: SPEC 09:30
PROVIDERS: ATTEND Physician Assistant
DX: R91.8 Other nonspecific abnormal finding of lung field (principal); E03.2 Hypothyroidism due to medicaments and other exogenous substances
CPT/HCPCS: 36415; 80048; 82024; 82533; 84439; 84443; 85007; 85025

== ENCOUNTER → 2020-10-09 | Outpatient (CLI) | payer MEDICARE, MEDICAID ==
[2020-07-27 11:35] VITALS: BP 130/82
[2020-10-09 11:35] LABS: CALCIUM 7.9 mg/dL (8.5-10.1); CREATININE 0.9 mg/dL (0.7-1.3); GFR 85.5; POTASSIUM 3.3 mmol/L (3.5-5.1)
[2020-10-09 11:42] LABS: ALBUMIN 3.7 g/dL (3.4-5.0); ALBUMIN/GLOBULIN RATIO 1.1 (1.0-1.7); TOTAL BILIRUBIN 0.9 mg/dL (0.2-1.0)
[2020-10-09 11:46] LABS: BASO % 0 % (0-3); EOS % 1 % (0-3); HEMATOCRIT 24.2 % (39.0-53.0); HEMOGLOBIN 8.5 g/dL (13.0-17.5); LYMPH # 0.3 x10^3/uL (1.0-4.8); LYMPH % 9 % (24-48); MEAN CORPUSCULAR HEMOGLOBIN 34 pg (25-35); MEAN CORPUSCULAR HGB CONC 35 g/dL (31-37); MEAN CORPUSCULAR VOLUME 96 fL (79-100); MONO # 0.2 x10^3/uL (0.0-1.1); MONO % 5 % (0-9); NEUT # 2.8 x10^3/uL (1.8-7.7); NEUT % 84 % (31-73); PLATELET COUNT 166 x10^3/uL (140-400); RED BLOOD COUNT 2.53 x10^6/uL (4.30-5.70); RED CELL DISTRIBUTION WIDTH 24.2 % (11.5-14.5); WHITE BLOOD COUNT 3.3 x10^3/uL (4.0-11.0)
== END ==
LOC: ONCLAB 11:03
PROVIDERS: ATTEND Physician Assistant
DX: C34.12 Malignant neoplasm of upper lobe, left bronchus or lung (principal)
CPT/HCPCS: 36415; 80053; 83615; 85025

== ENCOUNTER → 2020-10-13 | Outpatient (CLI) | payer MEDICARE, MEDICAID ==
[2020-07-27 11:35] VITALS: BP 130/82
[2020-10-13 11:06] LABS: BASO % 0 % (0-3); EOS % 2 % (0-3); HEMATOCRIT 27.3 % (39.0-53.0); HEMOGLOBIN 9.2 g/dL (13.0-17.5); LYMPH # 0.6 x10^3/uL (1.0-4.8); LYMPH % 21 % (24-48); MEAN CORPUSCULAR HEMOGLOBIN 34 pg (25-35); MEAN CORPUSCULAR HGB CONC 34 g/dL (31-37); MEAN CORPUSCULAR VOLUME 100 fL (79-100); MONO # 0.3 x10^3/uL (0.0-1.1); MONO % 10 % (0-9); NEUT # 1.7 x10^3/uL (1.8-7.7); NEUT % 66 % (31-73); PLATELET COUNT 121 x10^3/uL (140-400); RED BLOOD COUNT 2.74 x10^6/uL (4.30-5.70); RED CELL DISTRIBUTION WIDTH 25.5 % (11.5-14.5); WHITE BLOOD COUNT 2.6 x10^3/uL (4.0-11.0)
[2020-10-13 11:16] LABS: CALCIUM 9.1 mg/dL (8.5-10.1); GFR 75.7; POTASSIUM 4.2 mmol/L (3.5-5.1)
[2020-10-13 11:22] LABS: ALBUMIN 3.5 g/dL (3.4-5.0); TOTAL BILIRUBIN 0.5 mg/dL (0.2-1.0)
== END ==
LOC: ONCLAB 10:33
PROVIDERS: ATTEND Physician Assistant
DX: C34.12 Malignant neoplasm of upper lobe, left bronchus or lung (principal)
CPT/HCPCS: 36415; 80053; 83615; 85025

== ENCOUNTER → 2021-01-05 | Outpatient (CLI) | payer MEDICARE, MEDICAID ==
[2020-07-27 11:35] VITALS: BP 130/82
[2021-01-05 08:35] LABS: BASO % 1 % (0-3); EOS # 0.4 x10^3/uL (0.0-0.7); EOS % 6 % (0-3); HEMATOCRIT 41.6 % (39.0-53.0); LYMPH # 0.9 x10^3/uL (1.0-4.8); LYMPH % 16 % (24-48); MEAN CORPUSCULAR HEMOGLOBIN 31 pg (25-35); MEAN CORPUSCULAR HGB CONC 34 g/dL (31-37); MEAN CORPUSCULAR VOLUME 93 fL (79-100); MONO # 0.3 x10^3/uL (0.0-1.1); MONO % 6 % (0-9); NEUT % 72 % (31-73); PLATELET COUNT 178 x10^3/uL (140-400); RED CELL DISTRIBUTION WIDTH 14.3 % (11.5-14.5); WHITE BLOOD COUNT 5.6 x10^3/uL (4.0-11.0)
[2021-01-05 08:36] LABS: CALCIUM 8.8 mg/dL (8.5-10.1); CREATININE 0.8 mg/dL (0.7-1.3); POTASSIUM 3.9 mmol/L (3.5-5.1)
== END ==
LOC: ONCLAB 08:02
PROVIDERS: ATTEND Physician Assistant
DX: C34.12 Malignant neoplasm of upper lobe, left bronchus or lung (principal)
CPT/HCPCS: 36415; 80048; 85025

== ENCOUNTER → 2021-01-11 | Outpatient (CLI) | payer MEDICARE, MEDICAID ==
[2020-07-27 11:35] VITALS: BP 130/82
[~2021-01-11] MED LIST changes: +HEPARIN PF 500 UNIT/5 ML DISP.SYRIN. IVP ONE; +IOHEXOL 240 MG/ML 50ML VIAL. PO ONE; +IOHEXOL 300 MG/ML 100ML VIAL. IV ONE
--- NOTE | 2021-01-11 17:02 | RAD ---
EXAM: CT OF THE CHEST, ABDOMEN AND PELVIS WITH CONTRAST. HISTORY: Non-small cell lung cancer. TECHNIQUE: Computed tomography of the chest, abdomen and pelvis was performed after the intravenous a dministration of iodinated contrast. One or more of the following individualized dose reduction techn iques were utilized for this examination: 1. Automated exposure control. 2. Adjustment of the mA and/or kV according to patient size. 3. Use of iterative reconstruction technique. COMPARISON: 10/08/2020. FINDINGS: Bone windows reveal no suspicious lesions. A right-sided port catheter has its tip in the s uperior cavoatrial junction. There are no pathologically enlarged mediastinal or axillary lymph nodes. There are small pericardial and left pleural effusions. The heart is not enlarged. Consolidation about lingular lung suture line has increased. The region now spans 4.3 x 2.6 cm. This abuts the left lateral and medial pleura. A 3 mm nodule medially in the right upper lobe on image 18 is not clearly changed. Additional small n odules on images 28 and 16 also appear stable. The gallbladder is surgically absent. Bilateral benign renal cysts measure up to 2.5 cm on the right. The spleen, liver, adrenal glands and pancreas are unremarkable. There are no pathologically enlarged lymph nodes. The appendix is not inflamed. There is an anastomot ic suture line along the sigmoid colon. There is no small bowel obstruction. IMPRESSION: 1. Increased consolidation or soft tissue density about the lingular lung suture line. This may refle ct postradiation change rather than recurrence. Ongoing follow-up is recommended. 2. New small left and pericardial effusions. 3. Tiny bilateral pulmonary nodules are unchanged. 4. No clear metastatic disease. Electronically signed by: Cayden Noble MD (01/11/2021 5:00 PM) [id number]
== END ==
LOC: CT 12:31
PROVIDERS: ATTEND Physician Assistant
DX: R91.8 Other nonspecific abnormal finding of lung field (principal); J90 Pleural effusion, not elsewhere classified; N28.1 Cyst of kidney, acquired; Z90.49 Acquired absence of other specified parts of digestive tract
CPT/HCPCS: 71260; 74177; J1642; Q9966; Q9967

== ENCOUNTER → 2021-03-01 | Outpatient (CLI) | payer MEDICARE, MEDICAID ==
[2020-07-27 11:35] VITALS: BP 130/82
[~2021-03-01] MED LIST changes: -HEPARIN PF 500 UNIT/5 ML DISP.SYRIN. IVP ONE; -IOHEXOL 240 MG/ML 50ML VIAL. PO ONE; -IOHEXOL 300 MG/ML 100ML VIAL. IV ONE
--- NOTE | 2021-03-01 10:39 | RAD ---
EXAM: Chest, 2 views. HISTORY: Lung cancer. COMPARISON: 01/11/2021 FINDINGS: 2 views of the chest are obtained. There is a stable small left pleural effusion. There is lingular and left lower lobe infiltrate or scarring. There is a stable prominent cardiac silhouette. There is a port catheter with the tip overlying the expected location of the superior cavoatrial junc tion. There is no pneumothorax. IMPRESSION: 1. Stable lingular and left lower lobe infiltrate or scarring. This is better characterized on the re cent CT. 2. Stable small left pleural effusion. Electronically signed by: Connie Scott MD (03/01/2021 10:37 AM) [id number]
== END ==
LOC: RAD 09:50
PROVIDERS: ATTEND Physician Assistant
DX: C34.12 Malignant neoplasm of upper lobe, left bronchus or lung (principal); J90 Pleural effusion, not elsewhere classified; Z95.828 Presence of other vascular implants and grafts
CPT/HCPCS: 71046

== ENCOUNTER → 2021-03-08 | Outpatient (CLI) | payer MEDICARE, MEDICAID ==
[2020-07-27 11:35] VITALS: BP 130/82
[2021-03-08 08:50] LABS: BASO % 0 % (0-3); EOS # 0.5 x10^3/uL (0.0-0.7); EOS % 8 % (0-3); HEMATOCRIT 41.8 % (39.0-53.0); HEMOGLOBIN 14.1 g/dL (13.0-17.5); LYMPH # 0.8 x10^3/uL (1.0-4.8); LYMPH % 13 % (24-48); MEAN CORPUSCULAR HEMOGLOBIN 30 pg (25-35); MEAN CORPUSCULAR HGB CONC 34 g/dL (31-37); MEAN CORPUSCULAR VOLUME 88 fL (79-100); MONO # 0.3 x10^3/uL (0.0-1.1); MONO % 6 % (0-9); NEUT # 4.5 x10^3/uL (1.8-7.7); NEUT % 73 % (31-73); PLATELET COUNT 163 x10^3/uL (140-400); RED BLOOD COUNT 4.73 x10^6/uL (4.30-5.70); RED CELL DISTRIBUTION WIDTH 15.1 % (11.5-14.5); WHITE BLOOD COUNT 6.1 x10^3/uL (4.0-11.0)
[2021-03-08 09:46] LABS: ALBUMIN 3.5 g/dL (3.4-5.0); ALBUMIN/GLOBULIN RATIO 0.9 (1.0-1.7); GFR 75.7; TOTAL BILIRUBIN 0.4 mg/dL (0.2-1.0); TOTAL PROTEIN 7.3 g/dL (6.4-8.2)
[2021-03-08 09:51] LABS: POTASSIUM 3.9 mmol/L (3.5-5.1)
[2021-03-08 10:02] LABS: FREE T4 1.12 ng/dL (0.76-1.46); THYROID STIM HORMONE (TSH) 4.948 uIU/mL (0.358-3.74)
== END ==
LOC: ONCLAB 08:14
PROVIDERS: ATTEND Internal Medicine Hematology & Oncology
DX: C34.12 Malignant neoplasm of upper lobe, left bronchus or lung (principal); E03.2 Hypothyroidism due to medicaments and other exogenous substances
CPT/HCPCS: 36415; 80053; 83615; 84439; 84443; 85025

== ENCOUNTER → 2021-04-12 | Outpatient (CLI) | payer MEDICARE, MEDICAID ==
[2020-07-27 11:35] VITALS: BP 130/82
[2021-04-12 08:18] LABS: BASO % 0 % (0-3); EOS # 0.5 x10^3/uL (0.0-0.7); EOS % 9 % (0-3); HEMATOCRIT 43.2 % (39.0-53.0); HEMOGLOBIN 14.2 g/dL (13.0-17.5); LYMPH % 17 % (24-48); MEAN CORPUSCULAR HEMOGLOBIN 29 pg (25-35); MEAN CORPUSCULAR HGB CONC 33 g/dL (31-37); MEAN CORPUSCULAR VOLUME 88 fL (79-100); MONO # 0.3 x10^3/uL (0.0-1.1); MONO % 6 % (0-9); NEUT % 68 % (31-73); PLATELET COUNT 192 x10^3/uL (140-400); RED BLOOD COUNT 4.89 x10^6/uL (4.30-5.70); RED CELL DISTRIBUTION WIDTH 15.6 % (11.5-14.5); WHITE BLOOD COUNT 5.8 x10^3/uL (4.0-11.0)
[2021-04-12 08:27] LABS: CALCIUM 8.7 mg/dL (8.5-10.1); GFR 75.5; POTASSIUM 3.9 mmol/L (3.5-5.1)
[2021-04-12 08:34] LABS: ALBUMIN 3.4 g/dL (3.4-5.0); ALBUMIN/GLOBULIN RATIO 0.8 (1.0-1.7); TOTAL BILIRUBIN 0.4 mg/dL (0.2-1.0); TOTAL PROTEIN 7.8 g/dL (6.4-8.2)
== END ==
LOC: ONCLAB 08:02
PROVIDERS: ATTEND Internal Medicine Hematology & Oncology
DX: C34.12 Malignant neoplasm of upper lobe, left bronchus or lung (principal)
CPT/HCPCS: 36415; 80053; 83615; 85025

== ENCOUNTER → 2021-04-26 | Outpatient (CLI) | payer MEDICARE, MEDICAID ==
[2020-07-27 11:35] VITALS: BP 130/82
[~2021-04-26] MED LIST changes: +HEPARIN PF 500 UNIT/5 ML DISP.SYRIN. IVP ONE; +IOHEXOL 240 MG/ML 50ML VIAL. PO ONE; +IOHEXOL 300 MG/ML 100ML VIAL. IV ONE
--- NOTE | 2021-04-26 14:39 | RAD ---
PQRS Compliance Statement: One or more of the following individualized dose reduction techniques were utilized for this examinat ion: 1. Automated exposure control 2. Adjustment of the mA and/or kV according to patient size 3. Use of iterative reconstruction technique CT CHEST+ABD+PELVIS W Clinical Indication: Reason: Lung cancer / Comparison: CT chest abdomen and pelvis with contrast January 11, 2021. Technique: Helical CT imaging of the chest, abdomen and pelvis is performed after 75 cc of Omnipaque 300 IV contrast. Oral contrast also administered. Findings: Right chest Port-A-Cath. There is no mediastinal adenopathy. Great vessels are stable. There is small left pleural effusion, unchanged. There is moderate pericardial effusion, unchanged. The cardiac siz e is normal. Consolidation along the lingular suture line is unchanged as seen on image 30. Left lower lobe suture line is unchanged. 4 mm nodule in the superior segment of the right lower lobe is unchanged, image 2 5. 5 mm nodule in the medial right upper lobe is stable, image 18. Tiny calcified granuloma posterior left upper lobe. Mild induration of the left chest wall is unchanged, may be sequela of therapy, anselmo ge 30. Cholecystectomy. The liver, spleen, pancreas, adrenal glands, and abdominal aorta caliber are normal. Bilateral renal cysts do not require follow-up. No hydronephrosis. The stomach is unremarkable. There is no dilated small bowel. The appendix is normal. There is no sma ll bowel obstruction. There is moderate colon diverticulosis. No colon wall thickening is identified. There is sigmoid colon surgical anastomosis. No abdominal adenopathy or free fluid. The urinary bladder is normal. Prostate and seminal vesicles are normal. There is no pelvic free flui d. No acute bone abnormality. IMPRESSION: 1. Consolidation along the lingular suture line is unchanged. 2. Unchanged small left pleural effusion. 3. Moderate pericardial effusion is unchanged. 4. Pulmonary nodules are unchanged. 5. No evidence of metastatic disease in the abdomen or pelvis. 6. Moderate colon diverticulosis. Electronically signed by: Adi Medrano MD (04/26/2021 2:37 PM) [id number]
== END ==
LOC: CT 11:15
PROVIDERS: ATTEND Internal Medicine Hematology & Oncology
DX: C34.12 Malignant neoplasm of upper lobe, left bronchus or lung (principal); R91.8 Other nonspecific abnormal finding of lung field; J90 Pleural effusion, not elsewhere classified; I31.3 Pericardial effusion (noninflammatory); K57.30 Diverticulosis of large intestine without perforation or abscess without bleeding; K63.89 Other specified diseases of intestine; Z45.2 Encounter for adjustment and management of vascular access device
CPT/HCPCS: 71260; 74177; J1642; Q9966; Q9967

== ENCOUNTER → 2021-05-13 | Outpatient (CLI) | payer MEDICARE, MEDICAID ==
[2020-07-27 11:35] VITALS: BP 130/82
[~2021-05-13] MED LIST changes: -HEPARIN PF 500 UNIT/5 ML DISP.SYRIN. IVP ONE; -IOHEXOL 240 MG/ML 50ML VIAL. PO ONE; -IOHEXOL 300 MG/ML 100ML VIAL. IV ONE
[2021-05-13 08:43] LABS: BASO % 1 % (0-3); EOS # 0.8 x10^3/uL (0.0-0.7); EOS % 12 % (0-3); HEMATOCRIT 45.8 % (39.0-53.0); HEMOGLOBIN 15.1 g/dL (13.0-17.5); LYMPH % 15 % (24-48); MEAN CORPUSCULAR HEMOGLOBIN 29 pg (25-35); MEAN CORPUSCULAR HGB CONC 33 g/dL (31-37); MEAN CORPUSCULAR VOLUME 88 fL (79-100); MONO # 0.4 x10^3/uL (0.0-1.1); MONO % 6 % (0-9); NEUT # 4.4 x10^3/uL (1.8-7.7); NEUT % 67 % (31-73); PLATELET COUNT 177 x10^3/uL (140-400); RED BLOOD COUNT 5.23 x10^6/uL (4.30-5.70); RED CELL DISTRIBUTION WIDTH 15.1 % (11.5-14.5); WHITE BLOOD COUNT 6.6 x10^3/uL (4.0-11.0)
[2021-05-13 08:56] LABS: CALCIUM 10.5 mg/dL (8.5-10.1); CREATININE 1.1 mg/dL (0.7-1.3); GFR 67.6; POTASSIUM 3.9 mmol/L (3.5-5.1)
[2021-05-13 09:03] LABS: ALBUMIN 3.9 g/dL (3.4-5.0); TOTAL BILIRUBIN 0.5 mg/dL (0.2-1.0)
== END ==
LOC: ONCLAB 08:16
PROVIDERS: ATTEND Physician Assistant
DX: C34.12 Malignant neoplasm of upper lobe, left bronchus or lung (principal)
CPT/HCPCS: 36415; 80053; 83615; 85025

== ENCOUNTER → 2021-05-17 | Outpatient (CLI) | payer MEDICARE, MEDICAID ==
[2020-07-27 11:35] VITALS: BP 130/82
--- NOTE | 2021-05-17 14:00 | CARD ---
MR#: [id number] Date of Study: 05/17/2021 Ordering Physician: SHANTHI DALLAS, Referring Physician: SHANTHI DALLAS, Alcides: Roberto Galvez [facility] APPROVED REPORT EXAM: Two-dimensional and M-mode echocardiogram with Doppler and color Doppler. Other Information Quality : FairHR: 79bpm Rhythm : NSRTechnically limited study due to Patient could not tolerate apical imaging. INDICATION Pericardial Effusion RISK FACTORS Obesity Lung Cancer 2D DIMENSIONS Left Atrium(2D)4.0 (1.6-4.0cm)IVSd1.2 (0.7-1.1cm) Aortic Root(2D)3.1 (2.0-3.7cm)LVDd4.8 (3.9-5.9cm) LVOT Diameter1.8 (1.8-2.4cm)PWd1.1 (0.7-1.1cm) LVDs2.6 (2.5-4.0cm)FS (%) 45.3 % SV82.1 mlLVEF(%)76.5 (>50%) Pulmonary Valve PV Peak Tgqvyfci328.2cm/sPV Peak Grad.6mmHg Tricuspid Valve TR P. [id number]/sTR Peak Gr.23mmHg LEFT VENTRICLE The left ventricle is normal size. There is normal left ventricular wall thickness. The left ventricu lar systolic function is normal and the ejection fraction is within normal range. EF 55% There is nor mal LV segmental wall motion. Tissue Doppler imaging reveals mild left ventricular diastolic dysfunct ion. No left ventricle thrombus noted on this study. There is no ventricular septal defect visualized . There is no left ventricular aneurysm. There is no mass noted in the left ventricle. RIGHT VENTRICLE The right ventricle is normal size. There is normal right ventricular wall thickness. The right ventr icular systolic function is normal. ATRIA The left atrium is borderline dilated. The right atrium size is normal. The interatrial septum is int act with no evidence for an atrial septal defect or patent foramen ovale as noted on 2-D or Doppler i maging. AORTIC VALVE The aortic valve is grossly normal in structure and function. Doppler and Color Flow revealed no sign ificant aortic regurgitation. There is no significant aortic valvular stenosis. There is no aortic va lvular vegetation. MITRAL VALVE The mitral valve is normal in structure and function. There is no evidence of mitral valve prolapse. There is no mitral valve stenosis. Doppler and Color Flow revealed no mitral valve regurgitation note d. TRICUSPID VALVE The tricuspid valve is normal in structure and function. Doppler and Color Flow revealed trace tricus pid regurgitation. There is no tricuspid valve prolapse or vegetation. There is no tricuspid valve st enosis. PULMONIC VALVE The pulmonic valve is not well seen. Doppler and Color Flow revealed no pulmonic valvular regurgitati on. There is no pulmonic valvular stenosis. GREAT VESSELS The aortic root is normal in size. The ascending aorta is normal in size. The pulmonary artery is nor mal. The IVC is normal in size and collapses >50% with inspiration. PERICARDIAL EFFUSION There is no pleural effusion. There is no evidence of significant pericardial effusion. Critical Notification Critical Value: No <Conclusion> The left ventricular systolic function is normal and the ejection fraction is within normal range. EF 55% There is normal LV segmental wall motion. 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 No obvious evidence of tamponade on this current study. Technically difficult study. Signed by : Alex Mishra, Electronically Approved : 05/17/2021 13:59:40
== END ==
LOC: ECHO 07:34
PROVIDERS: ATTEND Physician Assistant
DX: I51.9 Heart disease, unspecified (principal); I31.3 Pericardial effusion (noninflammatory)
CPT/HCPCS: 93306; C8929